=== PATIENT | female | born 1965 ===

== ENCOUNTER 2024-07-23 04:26 | Day surgery (SDC) | payer OTHER ==
[2024-07-17 09:35] VITALS: BMI 29.7
[2024-07-23 09:28] VITALS: TEMP 97.7
[2024-07-23 09:42] VITALS: RESP 16
[2024-07-23 09:43] VITALS: BP 144/75; PULSE 70
== END 2024-07-23 09:52 | disposition home or self-care (01) ==
LOC: JASU-ENDO 04:26
PROVIDERS: ATTEND Internal Medicine Gastroenterology
PROC: 0DB68ZX Excision of Stomach, Via Natural or Artificial Opening Endoscopic, Diagnostic (ICD-10-PCS; 2024-07-23)
PROC: 0DB38ZX Excision of Lower Esophagus, Via Natural or Artificial Opening Endoscopic, Diagnostic (ICD-10-PCS; 2024-07-23)
PROC: 0DB98ZX Excision of Duodenum, Via Natural or Artificial Opening Endoscopic, Diagnostic (ICD-10-PCS; principal; 2024-07-23 09:00)
DX: K29.80 Duodenitis without bleeding (principal); K29.40 Chronic atrophic gastritis without bleeding; K21.00 Gastro-esophageal reflux disease with esophagitis, without bleeding
CPT/HCPCS: 88305-TC